=== PATIENT | female | born 2000 | race Caucasian/White ===

== ENCOUNTER 2021-01-09 16:24 | Emergency (ER) | payer OTHER ==
[2021-01-09] MEDS ORDERED: Ondansetron 4 MG Tab.DIS PO ONE ×2 (16:25→17:34)
[2021-01-09] MEDS ORDERED: Sodium Chloride 0.9% 1,000 ML IV ONE (16:26)
[2021-01-09] MEDS ORDERED: Ketorolac 30 MG/ML SDV IVPUSH ONE (16:27)
[2021-01-09] MEDS ORDERED: Ondansetron 4 MG/2 ML SDV IVPUSH ONE (16:27)
[2021-01-09] MEDS ORDERED: Ibuprofen 800 MG Tab PO ONE (17:35)
[2021-01-09] MEDS ORDERED: Acetaminophen 500 MG Tab PO ONE (17:35)
--- NOTE | 2021-01-09 18:29 | EDM.PDOC ---
ED HPI GENERAL MEDICAL PROBLEM - General Chief Complaint: Abdominal Pain Stated Complaint: ABDOMINAL PAIN Time Seen by Provider: 01/09/21 16:45 Source of Information: Reports: Patient, Family History Limitations: Reports: No Limitations - History of Present Illness INITIAL COMMENTS - FREE TEXT/NARRATIVE: c/o n/v pt with h/o anxiety and depression, PCP restarted citalopram, hydroxyzine and BC. 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[place] had normal BM yesterday R lower abdomen Pain Score (Numeric/FACES): 5 - Related Data Allergies Allergy/AdvReac Type Severity Reaction Status Date / Time Penicillins Allergy Cannot Verified 01/09/21 16:52 Remember Home Meds: Home Meds Desogestrel-Ethinyl Estradiol [Isibloom 28 Day Tablet] 1 each PO ASDIRECTED 01/09/21 [History] Escitalopram Oxalate [Lexapro] 10 mg PO DAILY 01/09/21 [History] hydrOXYzine pamoate [Hydroxyzine Pamoate] 25 mg PO TID PRN 01/09/21 [History] Past Medical History Gastrointestinal History: Reports: GERD 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: Reports: 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 Musculoskeletal History: Reports: Fracture Other Musculoskeletal History: hx finger fx, fx R ankle Neurological History: Reports: Concussion Psychiatric History: Reports: Anxiety, Depression, Psych Hospitalization(s), Suicide Attempt - Infectious Disease History Infectious Disease History: Reports: Chicken Pox, Novel Coronavirus - Past Surgical History Musculoskeletal Surgical History: Reports: Arthroscopic Knee Other Musculoskeletal Surgeries/Procedures:: L knee scope Social & Family History - Family History Family Medical History: No Pertinent Family History - Tobacco Use Tobacco Use Status *Q: Never Tobacco User - Caffeine Use Caffeine Use: Reports: Coffee, Energy Drinks, Soda - Recreational Drug Use Recreational Drug Use: Yes Recreational Drug Type: Reports: Marijuana/Hashish Recreational Drug Use Frequency: Daily ED ROS GENERAL - Review of Systems Review Of Systems: See Below Constitutional: Reports: No Symptoms HEENT: Reports: No Symptoms Respiratory: Reports: No Symptoms Cardiovascular: Reports: No Symptoms Endocrine: Reports: No Symptoms GI/Abdominal: Reports: Abdominal Pain, Nausea, Vomiting : Reports: No Symptoms Musculoskeletal: Reports: No Symptoms Skin: Reports: No Symptoms Neurological: Reports: No Symptoms Psychiatric: Reports: Agitation Hematologic/Lymphatic: Reports: No Symptoms Immunologic: Reports: No Symptoms ED EXAM, SKIN/RASH Exam: See Below Exam Limited By: No Limitations General Appearance: Alert, WD/WN, Mild Distress Ears: Normal External Exam, Hearing Grossly Normal Nose: Normal Inspection, Normal Mucosa, No Blood Throat/Mouth: Normal Inspection, Normal Lips, Normal Voice, No Airway Compromise Head: Atraumatic, Normocephalic Neck: Normal Inspection, Supple, Non-Tender. No: Lymphadenopathy (R), Lymphadenopathy (L) Respiratory/Chest: No Respiratory Distress, Lungs Clear, Normal Breath Sounds Cardiovascular: Regular Rate, Rhythm, No Edema, No Murmur GI/Abdominal: Normal Bowel Sounds, Soft, No Distention, Other (initial with mild tender in lower abd, nontender after meds, lying on side slightly curled up) Back Exam: Normal Inspection, Full Range of Motion. No: CVA Tenderness (R), CVA Tenderness (L) Extremities: Normal Inspection, Normal Range of Motion, Non-Tender, No Pedal Edema Neurological: Alert, Oriented, CN II-XII Intact, Normal Cognition, No Motor/Sensory Deficits Psychiatric: Anxious Skin: Warm, Dry, Normal Color, No Rash Lymphatic: No Adenopathy Course - Vital Signs Last Recorded V/S: Last Vital Signs Temp 36.7 C 01/09/21 16:24 Pulse 77 01/09/21 16:24 Resp 18 01/09/21 16:24 BP 111/56 L 01/09/21 16:24 Pulse Ox 100 01/09/21 16:24 - Orders/Labs/Meds Labs: Laboratory Tests 01/09/21 Range/Units 16:25 Urine Color Yellow (YELLOW) Urine Appearance Slightly cloudy (CLEAR) Urine pH 8.0 H (5.0-6.5) Ur Specific [place] 1.010 (1.010-1.025) Urine Protein Negative (NEGATIVE) mg/dL Urine Glucose (UA) Normal (NORMAL) mg/dL Urine Ketones 15 H (NEGATIVE) mg/dL Urine Occult Blood Negative (NEGATIVE) Urine Nitrite Negative (NEGATIVE) Urine Bilirubin Negative (NEGATIVE) Urine Urobilinogen Normal (NEGATIVE) mg/dL Ur Leukocyte Esterase Small H (NEGATIVE) Urine RBC 0-5 (0-5) Urine WBC 0-5 (0-5) Ur Squamous Epith Cells Occasional (NS,R,O) Amorphous Sediment Many Urine Bacteria Rare H (NS) Meds: Medications Discontinued Medications Generic Name Dose Route Start Last Admin Trade Name Freq PRN Reason Stop Dose Admin Acetaminophen 1,000 mg 01/09/21 17:35 01/09/21 17:42 Tylenol Extra Strength PO 01/09/21 17:36 1,000 mg ONETIME ONE Administration Sodium Chloride 1,000 mls @ 999 mls/hr 01/09/21 16:26 01/09/21 17:39 Normal Saline IV 01/09/21 17:26 Not Given .BOLUS ONE Ibuprofen 800 mg 01/09/21 17:35 01/09/21 17:42 Motrin PO 01/09/21 17:36 800 mg ONETIME ONE Administration Ketorolac Tromethamine 30 mg 01/09/21 16:27 01/09/21 17:39 Toradol IVPUSH 01/09/21 16:28 Not Given ONETIME ONE Ondansetron HCl 4 mg 01/09/21 16:27 01/09/21 17:39 Zofran IVPUSH 01/09/21 16:28 Not Given ONETIME ONE Ondansetron HCl 4 mg 01/09/21 17:34 01/09/21 17:42 Zofran Odt PO 01/09/21 17:35 4 mg ONETIME ONE Administration - Re-Assessments/Exams Free Text/Narrative Re-Assessment/Exam: 01/09/21 18:36 pt appears to have a phobia re meds, n/v d/t anxiety and not a direct side effects of meds, pt told the same pt plans to stop the meds Departure - Departure Time of Disposition: 18:21 Disposition: Home, Self-Care 01 Condition: Good Clinical Impression: Nausea and vomiting - Discharge Information *PRESCRIPTION DRUG MONITORING PROGRAM REVIEWED*: Not Applicable *COPY OF PRESCRIPTION DRUG MONITORING REPORT IN PATIENT THANH: Not Applicable Instructions: Nausea, Adult Forms: ED Department Discharge, ED Return to Work/School Form Additional Instructions: Increase fluids, including tonight. Eat a bland, low-fat diet tonight. Get adequate rest. No work today. See your doctor in 2-3 days for further recommendations. Return to Emergency Department if you are feeling worse. Sepsis Event Note (ED) - Evaluation Sepsis Screening Result: No Definite Risk - Focused Exam Vital Signs: Vital Signs Temp Pulse Resp BP Pulse Ox 01/09/21 16:24 36.7 C 77 18 111/56 L 100
== END 2021-01-09 18:40 | disposition home or self-care (01) ==
LOC: FB.ED 16:24
DX: R11.2 Nausea with vomiting, unspecified (principal); Z88.0 Allergy status to penicillin; Z79.899 Other long term (current) drug therapy
CPT/HCPCS: 81001; 99284; A9270

== ENCOUNTER 2021-01-20 20:34 | Emergency (ER) | payer OTHER ==
--- NOTE | 2021-01-20 20:55 | EDM.PDOC ---
ED HPI GENERAL MEDICAL PROBLEM - General Chief Complaint: Abdominal Pain Stated Complaint: KEEPS PASSING OUT Time Seen by Provider: 01/20/21 20:53 Source of Information: Reports: Patient History Limitations: Reports: No Limitations - History of Present Illness INITIAL COMMENTS - FREE TEXT/NARRATIVE: RLQ abdominal pain for >1 week. Some vomiting,anxiety. No constipation and No di arrhea and no possibility of . 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 Musculoskeletal History: Reports: Fracture Other Musculoskeletal History: hx finger fx, fx R ankle Neurological History: Reports: Concussion Psychiatric History: Reports: Anxiety, Depression, Psych Hospitalization(s), Suicide Attempt - Infectious Disease History Infectious Disease History: Reports: Chicken Pox, Novel Coronavirus - Past Surgical History Musculoskeletal Surgical History: Reports: Arthroscopic Knee Other Musculoskeletal Surgeries/Procedures:: L knee scope Social & Family History - Family History Family Medical History: No Pertinent Family History - Caffeine Use Caffeine Use: Reports: Coffee, Energy Drinks, Soda ED ROS GENERAL - Review of Systems Review Of Systems: Comprehensive ROS is negative, except as noted in HPI. ED EXAM, GI/ABD - Physical Exam Exam: See Below Exam Limited By: No Limitations General Appearance: Alert, Anxious Nose: Normal Inspection Head: Atraumatic Respiratory/Chest: No Respiratory Distress, Lungs Clear Cardiovascular: Normal Peripheral Pulses GI/Abdominal Exam: Soft, Tender. No: Mass Psychiatric: Anxious, Tearful Skin Exam: Warm Course - Vital Signs Last Recorded V/S: Last Vital Signs Temp 97.1 F 01/20/21 20:40 Pulse 67 01/20/21 23:00 Resp 16 01/20/21 23:00 BP 113/68 01/20/21 23:00 Pulse Ox 100 01/20/21 23:00 - Orders/Labs/Meds Orders: Active Orders 24 hr Category Date Time Status Abdomen Pelvis w Cont [CT] Stat Exams 01/20/21 20:52 Taken EKG 12 Lead [EK] Routine Ther 01/20/21 20:55 Stop Req Labs: Laboratory Tests 01/20/21 01/20/21 01/20/21 Range/Units 21:00 21:00 21:05 WBC 5.3 (3.0-10.3) x10-3/uL RBC 4.24 (3.60-5.20) x10(6)uL Hgb 12.7 (11.4-15.5) g/dL Hct 37.0 (34.2-48.2) % MCV 87.2 (76.7-100.5) fL MCH 30.0 (23.9-33.9) pg MCHC 34.4 (31.9-34.8) g/dL RDW 12.6 (12.3-16.5) % Plt Count 283 (151-488) x10(3)uL MPV 7.0 L (7.1-12.4) fL Neut % (Auto) 60.3 (30.8-76.2) % Lymph % (Auto) 30.6 (18.4-52.1) % [place] % (Auto) 8.1 (4.4-15.7) % Eos % (Auto) 0.5 L (0.6-8.1) % Baso % (Auto) 0.5 (0.2-1.5) % Neut # (Auto) 3.2 (1.5-6.3) x10-3/uL Lymph # (Auto) 1.6 (1.0-4.4) x10-3/uL [place] # (Auto) 0.4 (0.3-1.0) x10-3/uL Eos # (Auto) 0.0 (0.0-0.8) x10-3/uL Baso # (Auto) 0.0 (0.0-0.1) x10-3/uL Sodium (135-145) mmol/L Potassium (3.5-5.3) mmol/L Chloride (100-110) mmol/L Carbon Dioxide (21-32) mmol/L BUN (7-18) mg/dL Creatinine (0.55-1.02) mg/dL Est Cr Clr Drug Dosing Estimated GFR (MDRD) (>60) BUN/Creatinine Ratio (9-20) Glucose (80-116) mg/dL Calcium (8.2-10.1) mg/dL Urine Color Yellow (YELLOW) Urine Appearance Clear (CLEAR) Urine pH 6.5 (5.0-6.5) Ur Specific [place] 1.020 (1.010-1.025) Urine Protein Negative (NEGATIVE) mg/dL Urine Glucose (UA) Normal (NORMAL) mg/dL Urine Ketones 15 H (NEGATIVE) mg/dL Urine Occult Blood Negative (NEGATIVE) Urine Nitrite Negative (NEGATIVE) Urine Bilirubin Negative (NEGATIVE) Urine Urobilinogen Normal (NEGATIVE) mg/dL Ur Leukocyte Esterase Negative (NEGATIVE) Urine RBC 0-5 (0-5) Urine WBC 0-5 (0-5) Ur Squamous Epith Cells Few H (NS,R,O) Urine Bacteria Few H (NS) Urine HCG, Qual Negative (NEGATIVE) 01/20/21 Range/Units 21:05 WBC (3.0-10.3) x10-3/uL RBC (3.60-5.20) x10(6)uL Hgb (11.4-15.5) g/dL Hct (34.2-48.2) % MCV (76.7-100.5) fL MCH (23.9-33.9) pg MCHC (31.9-34.8) g/dL RDW (12.3-16.5) % Plt Count (151-488) x10(3)uL MPV (7.1-12.4) fL Neut % (Auto) (30.8-76.2) % Lymph % (Auto) (18.4-52.1) % [place] % (Auto) (4.4-15.7) % Eos % (Auto) (0.6-8.1) % Baso % (Auto) (0.2-1.5) % Neut # (Auto) (1.5-6.3) x10-3/uL Lymph # (Auto) (1.0-4.4) x10-3/uL [place] # (Auto) (0.3-1.0) x10-3/uL Eos # (Auto) (0.0-0.8) x10-3/uL Baso # (Auto) (0.0-0.1) x10-3/uL Sodium 140 (135-145) mmol/L Potassium 3.0 L D (3.5-5.3) mmol/L Chloride 102 (100-110) mmol/L Carbon Dioxide 22 (21-32) mmol/L BUN 10 (7-18) mg/dL Creatinine 0.7 (0.55-1.02) mg/dL Est Cr Clr Drug Dosing TNP Estimated GFR (MDRD) > 60 (>60) BUN/Creatinine Ratio 14.3 (9-20) Glucose 81 (80-116) mg/dL Calcium 8.5 (8.2-10.1) mg/dL Urine Color (YELLOW) Urine Appearance (CLEAR) Urine pH (5.0-6.5) Ur Specific [place] (1.010-1.025) Urine Protein (NEGATIVE) mg/dL Urine Glucose (UA) (NORMAL) mg/dL Urine Ketones (NEGATIVE) mg/dL Urine Occult Blood (NEGATIVE) Urine Nitrite (NEGATIVE) Urine Bilirubin (NEGATIVE) Urine Urobilinogen (NEGATIVE) mg/dL Ur Leukocyte Esterase (NEGATIVE) Urine RBC (0-5) Urine WBC (0-5) Ur Squamous Epith Cells (NS,R,O) Urine Bacteria (NS) Urine HCG, Qual (NEGATIVE) Meds: Medications Discontinued Medications Generic Name Dose Route Start Last Admin Trade Name Freq PRN Reason Stop Dose Admin Hydroxyzine HCl 50 mg 01/20/21 22:33 01/20/21 22:43 Hydroxyzine Hcl 50 Mg/Ml Sdv IM 01/20/21 22:34 50 mg ONETIME ONE Administration Iopamidol 100 ml 01/20/21 21:25 Iopamidol 755 Mg/Ml 100 Ml Bottle IV 01/20/21 21:26 . DIRECTED ONE Ketorolac Tromethamine 60 mg 01/20/21 22:33 01/20/21 22:43 Ketorolac 60 Mg/2 Ml Sdv IM 01/20/21 22:34 60 mg ONETIME ONE Administration Departure - Departure Time of Disposition: 09:03 Disposition: Home, Self-Care 01 Condition: Good Clinical Impression: Nausea and vomiting Qualifiers: Vomiting type: unspecified - Discharge Information Prescriptions: Potassium Chloride [Klor-Con M20] 20 meq PO DAILY #30 tab.er Referrals: PCP,None [Primary Care Provider] - Forms: ED Department Discharge Care Plan Goals: follow up with your primary care Sepsis Event Note (ED) - Focused Exam Vital Signs: Vital Signs Pulse Resp BP Pulse Ox 01/20/21 23:00 67 16 113/68 100 - Problem List & Annotations (1) RLQ abdominal pain SNOMED Code(s): 288218360 Code(s): R10.31 - RIGHT LOWER QUADRANT PAIN Status: Acute (2) Syncope SNOMED Code(s): 006870542 Code(s): R55 - SYNCOPE AND COLLAPSE Status: Acute (3) Nausea and vomiting SNOMED Code(s): 37746334 Code(s): R11.2 - NAUSEA WITH VOMITING, UNSPECIFIED Status: Acute Qualifiers: Vomiting type: unspecified (4) Pelvic congestion syndrome SNOMED Code(s): 73653171 Code(s): N94.89 - OTH COND ASSOC W FEMALE GENITAL ORGANS AND MENSTRUAL CYCLE Status: Acute - Problem List Review Problem List Initiated/Reviewed/Updated: Yes - My Orders Last 24 Hours: My Active Orders 01/20/21 20:52 Abdomen Pelvis w Cont [CT] Stat 01/20/21 20:55 EKG 12 Lead [EK] Routine - Assessment/Plan Last 24 Hours: My Active Orders 01/20/21 20:52 Abdomen Pelvis w Cont [CT] Stat 01/20/21 20:55 EKG 12 Lead [EK] Routine Plan: CT showed prominent vessels. No acute finding. DC home. I gave her Vistaril and Toradol. Follow up with PCP in 1-2 days
[2021-01-20] MEDS ORDERED: Iopamidol 755 Mg/ML 100 ML Bottle IV ONE (21:25)
[2021-01-20] MEDS ORDERED: Ketorolac 60 MG/2 ML SDV IM ONE (22:33)
[2021-01-20] MEDS ORDERED: hydrOXYzine HCl 50 MG/ML SDV IM ONE (22:33)
== END 2021-01-20 23:05 | disposition home or self-care (01) ==
LOC: FB.ED 20:34
DX: R10.31 Right lower quadrant pain (principal); R11.2 Nausea with vomiting, unspecified; Z88.0 Allergy status to penicillin
CPT/HCPCS: 36415; 74177; 80048; 81001; 81025; 85025; 93005; 96372; 99284; J1885; J3410; Q9967; 99283

== ENCOUNTER 2021-03-12 10:06 | Emergency (ER) | payer OTHER ==
[2021-03-12] MEDS ORDERED: Ondansetron 4 MG/2 ML SDV IVPUSH ONE (10:36)
[2021-03-12] MEDS ORDERED: Sodium Chloride 0.9% 1,000 ML IV ONE (10:36)
[2021-03-12] MEDS ORDERED: Ketorolac 30 MG/ML SDV IVPUSH ONE (10:36)
[2021-03-12] MEDS ORDERED: Metoclopramide 10 MG/2 ML SDV IVPUSH ONE (11:31)
--- NOTE | 2021-03-12 11:59 | EDM.PDOC ---
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 [employer], at end of shift had n/v, myalgias, no f/c/d was emotional here when IV started, then fell asleep h/o migraines, took ibuprofen 2d ago for the same, no N now has K pills at home, agreed to resume for 1w no N pills at home felt much better after meds and IVF here no acute process, no infection smokes THC daily which likely is a contributing factor called in to be off work today, will work tomorrow - Related Data Allergies Allergy/AdvReac Type Severity Reaction Status Date / Time Penicillins Allergy Cannot Verified 01/20/21 20:56 Remember Home Meds: Home Meds Potassium Chloride [Klor-Con M20] 20 meq PO DAILY #30 tab.er 01/20/21 [Rx] Ondansetron [Ondansetron ODT] 4 mg PO Q6H PRN #6 tab.rapdis 03/12/21 [Rx] Past Medical History HEENT History: Reports: None Cardiovascular History: Reports: None Respiratory History: Reports: None Gastrointestinal History: Reports: GERD Genitourinary History: Reports: None 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: Reports: 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 Musculoskeletal History: Reports: Fracture Other Musculoskeletal History: hx finger fx, fx R ankle Neurological History: Reports: Concussion, Migraines Psychiatric History: Reports: Anxiety, Depression, Psych Hospitalization(s), Suicide Attempt Endocrine/Metabolic History: Reports: None Hematologic History: Reports: None Immunologic History: Reports: None Oncologic (Cancer) History: Reports: None Dermatologic History: Reports: None - Infectious Disease History Infectious Disease History: Reports: Chicken Pox, Novel Coronavirus - Past Surgical History Head Surgeries/Procedures: Reports: None Musculoskeletal Surgical History: Reports: Arthroscopic Knee Other Musculoskeletal Surgeries/Procedures:: L knee scope Social & Family History - Family History Family Medical History: No Pertinent Family History - Tobacco Use Tobacco Use Status *Q: Never Tobacco User - Caffeine Use Caffeine Use: Reports: Coffee, Energy Drinks, Soda - Recreational Drug Use Recreational Drug Use: Yes Drug Use in Last 12 Months: Yes Recreational Drug Type: Reports: Marijuana/Hashish Recreational Drug Use Frequency: Daily ED ROS GENERAL - Review of Systems Review Of Systems: See Below Constitutional: Reports: No Symptoms HEENT: Reports: No Symptoms Respiratory: Reports: No Symptoms Cardiovascular: Reports: No Symptoms Endocrine: Reports: No Symptoms GI/Abdominal: Reports: Nausea, Vomiting : Reports: No Symptoms Musculoskeletal: Reports: Muscle Pain Skin: Reports: No Symptoms Neurological: Reports: No Symptoms Psychiatric: Reports: No Symptoms Hematologic/Lymphatic: Reports: No Symptoms Immunologic: Reports: No Symptoms ED EXAM, GI/ABD - Physical Exam Exam: See Below Exam Limited By: No Limitations General Appearance: Alert, WD/WN Throat/Mouth: Normal Inspection Head: Atraumatic Neck: Normal Inspection Respiratory/Chest: No Respiratory Distress, Lungs Clear Cardiovascular: Regular Rate, Rhythm, No Edema, No Murmur GI/Abdominal Exam: Soft, Non-Tender, No Distention Back Exam: Normal Inspection, Full Range of Motion Extremities: Normal Range of Motion, Non-Tender, No Pedal Edema Neurological: Alert, Oriented, CN II-XII Intact, Normal Cognition, No Motor/Sensory Deficits Psychiatric: Anxious Skin Exam: Warm, Dry, Intact, Normal Color Lymphatic: No Adenopathy Course - Orders/Labs/Meds Labs: Laboratory Tests 03/12/21 03/12/21 03/12/21 Range/Units 10:59 10:59 10:59 WBC 4.9 (3.0-10.3) x10-3/uL RBC 4.45 (3.60-5.20) x10(6)uL Hgb 13.4 (11.4-15.5) g/dL Hct 39.0 (34.2-48.2) % MCV 87.6 (76.7-100.5) fL MCH 30.0 (23.9-33.9) pg MCHC 34.3 (31.9-34.8) g/dL RDW 12.8 (12.3-16.5) % Plt Count 358 (151-488) x10(3)uL MPV 7.0 L (7.1-12.4) fL Neut % (Auto) 70.1 (30.8-76.2) % Lymph % (Auto) 19.9 (18.4-52.1) % [place] % (Auto) 8.3 (4.4-15.7) % Eos % (Auto) 1.1 (0.6-8.1) % Baso % (Auto) 0.6 (0.2-1.5) % Neut # (Auto) 3.4 (1.5-6.3) x10-3/uL Lymph # (Auto) 1.0 (1.0-4.4) x10-3/uL [place] # (Auto) 0.4 (0.3-1.0) x10-3/uL Eos # (Auto) 0.1 (0.0-0.8) x10-3/uL Baso # (Auto) 0.0 (0.0-0.1) x10-3/uL Sodium 143 (135-145) mmol/L Potassium 3.4 L (3.5-5.3) mmol/L Chloride 104 (100-110) mmol/L Carbon Dioxide 25 (21-32) mmol/L BUN 14 (7-18) mg/dL Creatinine 0.8 (0.55-1.02) mg/dL Est Cr Clr Drug Dosing 95.57 mL/min Estimated GFR (MDRD) > 60 (>60) BUN/Creatinine Ratio 17.5 (9-20) Glucose 104 (80-116) mg/dL Calcium 8.8 (8.2-10.1) mg/dL Total Bilirubin 0.4 (0.1-1.2) mg/dL AST 19 (5-25) IU/L ALT 17 (12-36) U/L Alkaline Phosphatase 52 L (56-112) IU/L C-Reactive Protein 0.2 L (0.5-0.9) mg/dL Total Protein 7.5 (6.0-8.0) g/dL Albumin 4.1 (3.2-4.5) g/dL Globulin 3.4 g/dL Albumin/Globulin Ratio 1.2 Meds: Medications Discontinued Medications Generic Name Dose Route Start Last Admin Trade Name Freq PRN Reason Stop Dose Admin Sodium Chloride 1,000 mls @ 999 mls/hr 03/12/21 10:36 03/12/21 10:38 Normal Saline IV 03/12/21 11:36 999 mls/hr .BOLUS ONE Administration Ketorolac Tromethamine 30 mg 03/12/21 10:36 03/12/21 10:55 Ketorolac 30 Mg/Ml Sdv IVPUSH 03/12/21 10:37 30 mg ONETIME ONE Administration Metoclopramide HCl 10 mg 03/12/21 11:31 03/12/21 11:42 Metoclopramide 10 Mg/2 Ml Sdv IVPUSH 03/12/21 11:32 10 mg ONETIME ONE Administration Ondansetron HCl 4 mg 03/12/21 10:36 03/12/21 10:53 Ondansetron 4 Mg/2 Ml Sdv IVPUSH 03/12/21 10:37 4 mg ONETIME ONE Administration - Re-Assessments/Exams Free Text/Narrative Re-Assessment/Exam: 03/12/21 12:09 well hydrated, no localized sxs Departure - Departure Time of Disposition: 11:54 Disposition: Home, Self-Care 01 Condition: Good Clinical Impression: Nausea & vomiting - Discharge Information *PRESCRIPTION DRUG MONITORING PROGRAM REVIEWED*: Not Applicable *COPY OF PRESCRIPTION DRUG MONITORING REPORT IN PATIENT THANH: Not Applicable Prescriptions: Ondansetron [Ondansetron ODT] 4 mg PO Q6H PRN #6 tab.rapdis PRN Reason: Nausea Instructions: Nausea and Vomiting, Adult Additional Instructions: To replace potassium, take potassium 1 tab daily for 7 days. For nausea, take ondansetron ODT 4 mg 1 tab under the tongue every 6 hours as needed. Rest today. May work tomorrow. Increase fluids. Limit marijuana use which can cause nausea and vomiting.
== END 2021-03-12 12:20 | disposition home or self-care (01) ==
LOC: FB.ED 10:06
DX: R11.2 Nausea with vomiting, unspecified (principal); Z88.0 Allergy status to penicillin
CPT/HCPCS: 36415; 80053; 85025; 86140; 96374; 96375; 99284; J1885; J2405; J2765; J7030

== ENCOUNTER 2021-04-10 06:03 | Emergency (ER) | payer OTHER ==
[2021-04-10] MEDS ORDERED: Sodium Chloride 0.9% 1,000 ML IV ONE (06:09)
[2021-04-10] MEDS ORDERED: Ondansetron 4 MG/2 ML SDV IVPUSH ONE (06:09)
[2021-04-10] MEDS ORDERED: Ketorolac 30 MG/ML SDV IVPUSH ONE (06:11)
--- NOTE | 2021-04-10 06:17 | EDM.PDOC ---
ED HPI GENERAL MEDICAL PROBLEM - General Stated Complaint: VOMITTING Time Seen by Provider: 04/10/21 06:03 Source of Information: Reports: Patient History Limitations: Reports: No Limitations - History of Present Illness INITIAL COMMENTS - FREE TEXT/NARRATIVE: c/o eating disorder pain comes to ED screaming hysterically "I hurt so bad", "i can't keep doing this", "I have an eating disorder" says she has pain for several days, that her "legs feel so heavy" says "I need something for pain", "please make the pain stop" has been to the ED with 3 similar c/o's in past says "I want to be admitted" boyfriend is with her who appears exhausted 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, 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 smoked THC yesterday, denies other street drugs, had been advised previously to decrease or stop THC use d/t GI sxs has had 3 ED visits with similar c/o's in the past 3m altho has not had this level of hysteria pt continued with emotional outbursts for 1.5h after arrival, much of which appeared voluntary not identifying specific triggers, has had issues with her parents during her childhood, has not had a formal dx of eating disorder which was d/w PCP has been referred to a psychologist by her PCP, waiting for insurance approval, has not worked with counselor - Related Data Allergies Allergy/AdvReac Type Severity Reaction Status Date / Time Penicillins Allergy Cannot Verified 04/10/21 07:35 Remember Home Meds: Home Meds LORazepam [Ativan] 0.5 mg PO BID PRN 04/10/21 [History] PARoxetine [Paxil] 20 mg PO DAILY 04/10/21 [History] Pantoprazole [ProTONIX] 40 mg PO DAILY 04/10/21 [History] buPROPion [buPROPion XL] 150 mg PO DAILY 04/10/21 [History] Past Medical History HEENT History: Reports: None Cardiovascular History: Reports: None Respiratory History: Reports: None Gastrointestinal History: Reports: GERD Genitourinary History: Reports: None ADMINISTRATIVE FELLOW History: Reports: 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 Musculoskeletal History: Reports: Fracture Other Musculoskeletal History: hx finger fx, fx R ankle Neurological History: Reports: Concussion, Migraines Psychiatric History: Reports: Anxiety, Depression, Psych Hospitalization(s), Suicide Attempt Endocrine/Metabolic History: Reports: None Hematologic History: Reports: None Immunologic History: Reports: None Oncologic (Cancer) History: Reports: None Dermatologic History: Reports: None - Infectious Disease History Infectious Disease History: Reports: Chicken Pox, Novel Coronavirus - Past Surgical History Head Surgeries/Procedures: Reports: None Musculoskeletal Surgical History: Reports: Arthroscopic Knee Other Musculoskeletal Surgeries/Procedures:: L knee scope Social & Family History - Family History Family Medical History: No Pertinent Family History - Caffeine Use Caffeine Use: Reports: Coffee, Energy Drinks, Soda ED ROS GENERAL - Review of Systems Review Of Systems: See Below Constitutional: Reports: No Symptoms HEENT: Reports: No Symptoms Respiratory: Reports: No Symptoms Cardiovascular: Reports: No Symptoms Endocrine: Reports: No Symptoms GI/Abdominal: Reports: Abdominal Pain, Nausea : Reports: No Symptoms Musculoskeletal: Reports: Other (myalgias) Skin: Reports: No Symptoms Neurological: Reports: No Symptoms Psychiatric: Reports: Anxiety. Denies: Homicidal Ideation, Suicidal Ideation Hematologic/Lymphatic: Reports: No Symptoms Immunologic: Reports: No Symptoms ED EXAM, GENERAL - Physical Exam Exam: See Below Exam Limited By: No Limitations General Appearance: Alert, WD/WN Ears: Hearing Grossly Normal Nose: Normal Inspection Throat/Mouth: Normal Inspection, Normal Voice, No Airway Compromise Head: Atraumatic, Normocephalic Neck: Normal Inspection, Supple, Non-Tender, Full Range of Motion Respiratory/Chest: No Respiratory Distress, Lungs Clear, Normal Breath Sounds, Chest Non-Tender Cardiovascular: Regular Rate, Rhythm, No Edema, No Murmur GI/Abdominal: Soft, Other (pt barely allows stethoscope to be placed on abd with c/o pain, however BS present and no localized pain) Back Exam: Normal Inspection, Full Range of Motion, Other (pt with pain c/o if back is lightly touched anywhere) Extremities: Normal Inspection, Normal Range of Motion, Non-Tender, No Pedal Edema Neurological: Alert, Oriented, CN II-XII Intact, No Motor/Sensory Deficits Psychiatric: Anxious Skin Exam: Warm, Dry, Intact, Normal Color, No Rash Lymphatic: No Adenopathy Course - Vital Signs Last Recorded V/S: Last Vital Signs Temp 37.3 C 04/10/21 06:10 Pulse 113 H 04/10/21 06:10 Resp 20 06/05/21 06:10 BP 125/86 04/10/21 06:10 Pulse Ox 100 04/10/21 06:10 - Orders/Labs/Meds Orders: Active Orders 24 hr Category Date Time Status CULTURE URINE [RM] Stat Lab 04/10/21 07:08 Ordered Labs: Laboratory Tests 04/10/21 04/10/21 04/10/21 Range/Units 06:30 06:30 07:03 WBC 8.7 (3.0-10.3) x10-3/uL RBC 4.31 (3.60-5.20) x10(6)uL Hgb 12.9 (11.4-15.5) g/dL Hct 38.1 (34.2-48.2) % MCV 88.4 (76.7-100.5) fL MCH 29.9 (23.9-33.9) pg MCHC 33.8 (31.9-34.8) g/dL RDW 12.5 (12.3-16.5) % Plt Count 355 (151-488) x10(3)uL MPV 7.0 L (7.1-12.4) fL Neut % (Auto) 55.8 (30.8-76.2) % Lymph % (Auto) 33.1 (18.4-52.1) % [place] % (Auto) 9.5 (4.4-15.7) % Eos % (Auto) 0.7 (0.6-8.1) % Baso % (Auto) 0.9 (0.2-1.5) % Neut # (Auto) 4.8 (1.5-6.3) x10-3/uL Lymph # (Auto) 2.9 (1.0-4.4) x10-3/uL [place] # (Auto) 0.8 (0.3-1.0) x10-3/uL Eos # (Auto) 0.1 (0.0-0.8) x10-3/uL Baso # (Auto) 0.1 (0.0-0.1) x10-3/uL Sodium 140 (135-145) mmol/L Potassium 4.4 D (3.5-5.3) mmol/L Chloride 106 (100-110) mmol/L Carbon Dioxide 23 (21-32) mmol/L BUN 16 (7-18) mg/dL Creatinine 0.8 (0.55-1.02) mg/dL Est Cr Clr Drug Dosing TNP Estimated GFR (MDRD) > 60 (>60) BUN/Creatinine Ratio 20.0 (9-20) Glucose 102 (80-116) mg/dL Calcium 8.4 L (8.6-10.2) mg/dL Urine Color Yellow (YELLOW) Urine Appearance Cloudy (CLEAR) Urine pH 5.0 (5.0-6.5) Ur Specific [place] 1.025 (1.010-1.025) Urine Protein Trace (NEGATIVE) mg/dL Urine Glucose (UA) Normal (NORMAL) mg/dL Urine Ketones 15 H (NEGATIVE) mg/dL Urine Occult Blood Large H (NEGATIVE) Urine Nitrite Negative (NEGATIVE) Urine Bilirubin Negative (NEGATIVE) Urine Urobilinogen Normal (NEGATIVE) mg/dL Ur Leukocyte Esterase Negative (NEGATIVE) Urine RBC >100 H (0-5) Urine WBC 10-20 H (0-5) Ur Squamous Epith Cells Moderate H (NS,R,O) Urine Bacteria Many H (NS) Urine Opiates Screen (NEGATIVE) Ur Oxycodone Screen (NEGATIVE) Ur Propoxyphene Screen (NEGATIVE) Ur Barbituates Screen (NEGATIVE) Ur Tricyclics Screen (NEGATIVE) Ur Phencyclidine Scrn (NEGATIVE) Ur Amphetamine Screen (NEGATIVE) Urine MDMA Screen (NEGATIVE) U Benzodiazepines Scrn (NEGATIVE) U Cocaine Metab Screen (NEGATIVE) U Marijuana (THC) Screen (NEGATIVE) 04/10/21 Range/Units 07:04 WBC (3.0-10.3) x10-3/uL RBC (3.60-5.20) x10(6)uL Hgb (11.4-15.5) g/dL Hct (34.2-48.2) % MCV (76.7-100.5) fL MCH (23.9-33.9) pg MCHC (31.9-34.8) g/dL RDW (12.3-16.5) % Plt Count (151-488) x10(3)uL MPV (7.1-12.4) fL Neut % (Auto) (30.8-76.2) % Lymph % (Auto) (18.4-52.1) % [place] % (Auto) (4.4-15.7) % Eos % (Auto) (0.6-8.1) % Baso % (Auto) (0.2-1.5) % Neut # (Auto) (1.5-6.3) x10-3/uL Lymph # (Auto) (1.0-4.4) x10-3/uL [place] # (Auto) (0.3-1.0) x10-3/uL Eos # (Auto) (0.0-0.8) x10-3/uL Baso # (Auto) (0.0-0.1) x10-3/uL Sodium (135-145) mmol/L Potassium (3.5-5.3) mmol/L Chloride (100-110) mmol/L Carbon Dioxide (21-32) mmol/L BUN (7-18) mg/dL Creatinine (0.55-1.02) mg/dL Est Cr Clr Drug Dosing Estimated GFR (MDRD) (>60) BUN/Creatinine Ratio (9-20) Glucose (80-116) mg/dL Calcium (8.6-10.2) mg/dL Urine Color (YELLOW) Urine Appearance (CLEAR) Urine pH (5.0-6.5) Ur Specific Rot[place] (1.010-1.025) Urine Protein (NEGATIVE) mg/dL Urine Glucose (UA) (NORMAL) mg/dL Urine Ketones (NEGATIVE) mg/dL Urine Occult Blood (NEGATIVE) Urine Nitrite (NEGATIVE) Urine Bilirubin (NEGATIVE) Urine Urobilinogen (NEGATIVE) mg/dL Ur Leukocyte Esterase (NEGATIVE) Urine RBC (0-5) Urine WBC (0-5) Ur Squamous Epith Cells (NS,R,O) Urine Bacteria (NS) Urine Opiates Screen Negative (NEGATIVE) Ur Oxycodone Screen Negative (NEGATIVE) Ur Propoxyphene Screen Negative (NEGATIVE) Ur Barbituates Screen Negative (NEGATIVE) Ur Tricyclics Screen Negative (NEGATIVE) Ur Phencyclidine Scrn Negative (NEGATIVE) Ur Amphetamine Screen Negative (NEGATIVE) Urine MDMA Screen Negative (NEGATIVE) U Benzodiazepines Scrn Negative (NEGATIVE) U Cocaine Metab Screen Negative (NEGATIVE) U Marijuana (THC) Screen Positive H (NEGATIVE) Meds: Medications Discontinued Medications Generic Name Dose Route Start Last Admin Trade Name Freq PRN Reason Stop Dose Admin Diphenhydramine HCl 50 mg 04/10/21 09:49 04/10/21 10:18 Diphenhydramine 50 Mg/Ml Sdv IVPUSH 04/10/21 09:50 50 mg ONETIME ONE Administration Sodium Chloride 1,000 mls @ 999 mls/hr 04/10/21 06:09 04/10/21 06:35 Normal Saline IV 04/10/21 07:09 999 mls/hr .BOLUS ONE Administration Ciprofloxacin/Dextrose 400 mg/ 200 mls @ 200 mls/hr 04/10/21 08:03 04/10/21 08:22 Premix IV 04/10/21 09:02 200 mls/hr ONETIME ONE Administration Ketorolac Tromethamine 30 mg 04/10/21 06:11 04/10/21 06:41 Ketorolac 30 Mg/Ml Sdv IVPUSH 04/10/21 06:12 30 mg ONETIME ONE Administration Lorazepam 1 mg 04/10/21 07:17 04/10/21 07:29 Lorazepam 2 Mg/Ml Sdv IVPUSH 04/10/21 07:18 1 mg ONETIME ONE Administration Metoclopramide HCl 10 mg 04/10/21 09:49 04/10/21 10:18 Metoclopramide 10 Mg/2 Ml Sdv IVPUSH 04/10/21 09:50 10 mg ONETIME ONE Administration Ondansetron HCl 4 mg 04/10/21 06:09 04/10/21 06:40 Ondansetron 4 Mg/2 Ml Sdv IVPUSH 04/10/21 06:10 4 mg ONETIME ONE Administration - Re-Assessments/Exams Free Text/Narrative Re-Assessment/Exam: 04/10/21 07:41 cause of hysteria and emotional distress is not clear, appears to be a "cry for help" c/w limited coping skills as actual anxiety appears minimal does have a UTI that had not been present on 2 previous u/a's from 3m ago menses began today menses and UTI appear incidental to her current emotional distress pt did calm down some after Ativan 1 mg IV, has been an Rx for Ativan PO by her PCP 04/10/21 10:49 Bennett Gotti at [facility] [employer] talked with psychiatrist who said pt did not meet criteria for inpt tx and recommended outpt tx pt stopped raising her voice after 1.5h, was still very dramatic and flopping around when RN walked her to bathroom, she sat on bathroom floor and RN had to ask her to not do so pt was sound asleep as was her boyfriend at time of d/c secondary gain from hysteria and emotional drama unclear, pt agrees to outpt co unselor, makes lifestyle decisions that are unhelpful again recommended stopping THC MPMP with lorazepam 0.5 mg #10 filled 2d ago on 04-08-21, from [facility], filled at [facility] in [place] 04/10/21 11:28 RN awoke pt to d/c her just now, pt stated she was feeling much, sat and stood and walked without difficulty (which she had not done before), she agreed to d/c instructions, left with boyfriend Departure - Departure Time of Disposition: 10:48 Disposition: Home, Self-Care 01 Condition: Good Clinical Impression: Generalized anxiety disorder, Hysteria conversion type, Mild dehydration, Urinary tract infection - Discharge Information *PRESCRIPTION DRUG MONITORING PROGRAM REVIEWED*: Yes *COPY OF PRESCRIPTION DRUG MONITORING REPORT IN PATIENT THANH: Not Applicable Instructions: Generalized Anxiety Disorder, Adult, Supporting Someone With Anxiety, Managing Anxiety, Adult Referrals: PCP,None [Primary Care Provider] - Forms: ED Department Discharge Additional Instructions: The psychiatrist at [facility] was contacted. He did not think that inpatient treatment was needed. He did recommend outpatient treatment. Continue on your prescribed medications. Get adequate rest. Stop using marijuana which can make symptoms worse. Eat 3 meals a day. Maintain fluids. See outpatient counselor as soon as possible. See your primary care provider in 2-3 days for additional recommendations. Sepsis Event Note (ED) - Focused Exam Vital Signs: Vital Signs Temp Pulse Resp BP Pulse Ox 04/10/21 06:10 37.3 C 113 H 20 125/86 100 - My Orders Last 24 Hours: My Active Orders 04/10/21 07:08 CULTURE URINE [RM] Stat - Assessment/Plan Last 24 Hours: My Active Orders 04/10/21 07:08 CULTURE URINE [RM] Stat
[2021-04-10] MEDS ORDERED: LORazepam 2 MG/ML SDV IVPUSH ONE (07:17)
[2021-04-10] MEDS ORDERED: Ciprofloxacin in D5W 400 MG in Premix Bag 1 BAG IV ONE ×2 (08:03)
[2021-04-10] MEDS ORDERED: diphenhydrAMINE 50 MG/ML SDV IVPUSH ONE (09:49)
[2021-04-10] MEDS ORDERED: Metoclopramide 10 MG/2 ML SDV IVPUSH ONE (09:49)
== END 2021-04-10 11:25 | disposition home or self-care (01) ==
LOC: FB.ED 06:03
DX: N39.0 Urinary tract infection, site not specified (principal); E86.0 Dehydration; F41.9 Anxiety disorder, unspecified; F44.9 Dissociative and conversion disorder, unspecified; Z88.0 Allergy status to penicillin
CPT/HCPCS: 36415; 80048; 80305; 81001; 85025; 87086; 96365; 96375; 99284; J0744; J1200; J1885; J2060; J2405; J2765; J7030